=== PATIENT | female | born 1970 | race Caucasian/White ===

== ENCOUNTER 2018-04-16 08:49 | Outpatient (RCR) | payer MEDICARE, OTHER | END 2018-05-11 | LOC: PT 08:49 | PROVIDERS: ATTEND Specialist | DX: M25.552 Pain in left hip (principal); M25.511 Pain in right shoulder; M79.601 Pain in right arm; M62.81 Muscle weakness (generalized) | CPT/HCPCS: 97110; 97162; G8984; G8985 ==

== ENCOUNTER 2018-06-22 12:16 | Emergency (ER) | payer MEDICARE ==
[~2018-06-22] VITALS: Ht 172.7 cm; Wt 58.1 kg
--- OUTSIDE RECORDS SUMMARY | 2018-06-22 12:18 | XMS REPORT ---
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 Allergies, Adverse Reactions, Alerts Allergy Name Allergy Type Status Severity Reaction(s) Onset Date Inactive Date Treating Clinician Comments No Known Allergies DA Active U 2010-10-15 00:00:00 Medications This patient has no known medications.
[2018-06-22 12:58] LABS: BILIRUBIN,URINE NEGATIVE (NEGATIVE); CLARITY,URINE CLOUDY (CLEAR); COLOR,URINE YELLOW (YELLOW); KETONES,URINE TRACE (NEGATIVE); LEUKOCYTE ESTERASE ,URINE 1+ (NEGATIVE); NITRITE,URINE NEGATIVE (NEGATIVE); PROTEIN,URINE DIPSTICK 3+ (NEGATIVE); URINE UROBILINOGEN 0.2 mg/dL (0.2 - 1)
[2018-06-22 13:17] LABS: WBC,URINE (MAN) >50 /HPF (0-5)
[2018-06-22 13:18] LABS: BACTERIA,URINE MODERATE /HPF
--- NOTE | 2018-06-22 13:25 | NUR ---
[id number] CALLED PT INTO TRIAGE ROOM FOR DISCHARGE HOME, NO ANSWER. INFORMED BY RESEARCH INTERN THAT PT GOT IN HER CAR AND LEFT. CALLED PT AT PHONE NUMBER GIVEN., PT AT HOME BUT STATES SHE WILL RETURN TO ER TO GET HER PRESCRIPTIONS. INFORMED MEI MAHONEY OF THIS.
--- NOTE | 2018-06-22 17:25 | NUR ---
PT STILL HAS NOT RETURNED TO ER FOR PRESCRIPTIONS. INFORMED MEI MAHONEY OF THIS. AT THIS TIME PT WILL BE DISCHARGED OUT OF SYSTEM.
== END 2018-06-22 17:30 | disposition left against medical advice (07) ==
LOC: ER 12:16
DX: N30.00 Acute cystitis without hematuria (principal); J44.9 Chronic obstructive pulmonary disease, unspecified
CPT/HCPCS: 81001; 81025; 99282